=== PATIENT | male | born 1935 | race Hispanic/Latino ===

== ENCOUNTER 2017-07-04 11:02 | Outpatient (CLI) | payer MEDICARE, OTHER ==
--- NOTE | 2017-07-04 16:23 | XRay Report ---
XRAY BILATERAL KNEE FOUR VIEWS EACH: 07/04/17 11:02:00 CLINICAL: Bilateral knee pain. FINDINGS: Right: Moderate osteopenia. Status post total joint replacement with normal appearance of the prosthesis. No fracture or dislocation. No joint effusion. A few vascular calcifications. Soft tissues are otherwise unremarkable. Left: Moderate osteopenia. Status post total joint replacement with normal appearance of the prosthesis. No fracture or dislocation. No joint effusion. Moderate prepatellar and suprapatellar soft tissue edema.No soft tissue air or foreign body. Vascular calcifications. IMPRESSION: Status post bilateral total knee replacement. Nonspecific soft tissue edema on the left.
== END 2017-07-04 11:03 | disposition home or self-care (01) ==
LOC: SPVIMAG 11:02
PROVIDERS: ATTEND Orthopaedic Surgery Sports Medicine
DX: M85.861 Other specified disorders of bone density and structure, right lower leg (principal); M85.862 Other specified disorders of bone density and structure, left lower leg; M25.861 Other specified joint disorders, right knee; M25.862 Other specified joint disorders, left knee; I10 Essential (primary) hypertension; I48.91 Unspecified atrial fibrillation; E03.9 Hypothyroidism, unspecified; Z96.653 Presence of artificial knee joint, bilateral; Z87.891 Personal history of nicotine dependence

== ENCOUNTER 2019-08-12 10:18 | Inpatient (IN) | payer MEDICARE, OTHER ==
--- NOTE | 2019-08-12 11:03 | Event Note ---
ED Screening Note ED Screening Note: ILL APPEARING 84 YO WITH HR IN 50'S - PERSISTENT AFIB ON ATENOLOL SENT TO ER BY EYE DOCTOR DUE TO ACUTE RETINAL ARTERY OCCLUSION NO FOCAL DEF ON EXAM IN TRIAGE CARDS GUICHO DAVID [facility] COMPLICATED- SEE PAPERS THAT HAS ON HER PERSON RX PRADAXA STATIN ATENOLOL NO ASA MANY OTHERS -SEE LIST NO ACUTE EVENT AT THIS TIME This initial assessment/diagnostic orders/clinical plan/treatment(s) is/are subject to change based on patients health status, clinical progression and re- assessment by fellow clinical providers in the ED. Further treatment and workup at subsequent clinical providers discretion. Patient/guardian urged not to elope from the ED as their condition may be serious if not clinically assessed and managed. Initial orders include: CT HEAD XRAY CHEST EKG BRADYCARDIA BASIC LABS
--- NOTE | 2019-08-12 11:50 | XRay Report ---
CHEST 2 VIEWS INDICATION: Weakness. COMPARISON: None FINDINGS: Support devices: Stimulator device projects over the midthoracic spine. Heart: Within normal limits. Lungs/pleura: No acute air space or interstitial disease. Tiny calcified granuloma in the left lung base. Additional findings: None. IMPRESSION: 1. No acute findings. Signer Name: Gary Gambino MD Signed: 08/12/2019 11:46 AM Workstation Name: [id number]
[2019-08-12 11:59] LABS: Basophils # (Auto) 0.1 K/mm3 (0.0-0.1); Basophils % (Auto) 2.1 % (0.0-1.8); Eosinophils % (Auto) 0.5 % (0.0-4.3); Hematocrit 41.6 % (35.5-45.6); Lymphocytes # (Auto) 1.8 K/mm3 (1.2-5.4); Lymphocytes % (Auto) 33.2 % (13.4-35.0); Mean Corpuscular HGB Conc 34 % (32-34); Mean Corpuscular Volume 90 fl (84-94); Monocytes # (Auto) 0.8 K/mm3 (0.0-0.8); Platelet Count 157 K/mm3 (140-440); Red Blood Count 4.62 M/mm3 (3.65-5.03); Red Cell Distribution Width 14.6 % (13.2-15.2)
[2019-08-12 12:10] LABS: INR 1.42 (0.87-1.13)
[2019-08-12 12:11] LABS: Partial Thromboplastin Time 42.6 Sec. (24.2-36.6)
[2019-08-12 12:28] LABS: Calcium 9.9 mg/dL (8.4-10.2)
[2019-08-12 13:04] LABS: Bilirubin,Urine NEG (Negative); Blood,Urine LG (Negative); Color,Urine Amber (Yellow); Protein,Urine <15 mg/dL mg/dL (Negative); Urobilinogen,Urine < 2.0 mg/dL (<2.0)
[2019-08-12 13:23] LABS: Bacteria,Urine 1+ /HPF (Negative); Mucus,Urine Few /HPF
--- NOTE | 2019-08-12 13:30 | Cat Scan Report ---
CT head without contrast HISTORY: Weakness. TECHNIQUE: Axial imaging performed from the skull apex through the skull base without the use of con trast. All CT scans at this location are performed using CT dose reduction for ALARA by means of aut omated exposure control. COMPARISON: None FINDINGS: Parenchyma: No acute intracranial hemorrhage or parenchymal abnormality. Ventricles: There is mild diffuse brain atrophy with commensurate ventricular enlargement which is l ikely age appropriate. Soft tissues: Soft tissues including the orbits appear normal. Bones: No acute osseous abnormality. Sinuses: Sinuses and mastoid air cells are clear. IMPRESSION: No acute abnormality. Signer Name: Gary Gambino MD Signed: 08/12/2019 1:25 PM Workstation Name: [id number]
--- NOTE | 2019-08-12 16:58 | Emergency Department Report ---
ED Neuro Deficit HPI - General Chief Complaint: Weakness Stated Complaint: EYE STORKE Time Seen by Provider: 08/12/19 11:02 Source: patient Mode of arrival: Ambulatory Limitations: No Limitations - History of Present Illness Initial Comments: Mr. Hicks is an 84 yo male with hx of atrial fibrillation, asthma, CKD who was recently diagnosed by compensation manager Dr. 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 Study Manager was concerned for the risk of additional strokes. He has had decreased vision in the eye since mid June. Denies new gait disturbance, paralysis, numbness. No previous hx of CVA. Pot Filler Dr. Campoverde [facility] Takes Pradaxa, does take a statin medication. -: Sudden, month(s) (1) History of same: No Severity: moderate Improves With: none Worsens With: none On Anticoagulants: Yes (Pradaxa) Context: sudden onset - Related Data Home Medications: Home Medications Medication Instructions Recorded Confirmed Last Taken C,E,Zinc,Copper 24/Om3/Lut/Ora 1 each PO DAILY 01/03/15 09/21/15 10/17/15 [Ocuvite Softgel] Calcium Cit/Mag/D3/Zn/Search Strategist/Rashaad 1 each PO DAILY 01/03/15 09/21/15 10/17/15 [Calcium Citrate Plus Tablet] Cholecalciferol (Vitamin D3) 2,000 unit PO DAILY 01/03/15 09/21/15 10/17/15 [Vitamin D-3] Dabigatran [Pradaxa] 150 mg PO BID 01/03/15 10/18/15 10/12/15 Fenofibrate [Lofibra] 160 mg PO QDAY 01/03/15 09/21/15 10/17/15 160 MG Ferrous Gluconate [Ferate] 240 mg PO DAILY 01/03/15 09/21/15 10/17/15 Fish Oil/Borage/Flax/Om3,6,9 1 1,200 mg PO DAILY 01/03/15 09/21/15 10/17/15 [[place] 3-6-9 1,200 mg Softgel] Fluticasone [Flonase] 1 spray NS QDAY 01/03/15 10/18/15 10/16/15 Gabapentin 300 mg PO DAILY 01/03/15 09/21/15 10/17/15 300 MG Glucosam/Chondr/Collagn/Hyalur 1 each PO TID 01/03/15 09/21/15 10/17/15 [Glucosamine & Chondroitin Cap] HYDROcodone/APAP 5-325 [[place] 1 each PO Q6HR PRN 01/03/15 10/18/15 10/15/15 5/325] Levothyroxine [Synthroid] 50 mcg PO QAM 01/03/15 09/21/15 10/18/15 06:30 50 MCG Mv-Min/Folic/Vit K/Lycop/Coq10 1 each PO DAILY 01/03/15 09/21/15 10/17/15 [Daily Multivitamin Capsule] Omeprazole [PriLOSEC] 40 mg PO DAILY 01/03/15 09/21/15 10/17/15 40 MG Pravastatin [Pravachol] 40 mg PO QHS 01/03/15 09/21/15 10/17/15 40 MG Temazepam [Restoril] 30 mg PO QHS PRN 01/03/15 09/21/15 10/17/15 30 MG Tizanidine HCl [tiZANidine] 4 mg PO DAILY 01/03/15 09/21/15 10/17/15 Tolterodine (Nf) [Detrol LA] 4 mg PO QDAY 01/03/15 09/21/15 10/17/15 Ubidecarenone [Coq10] 50 mg PO DAILY 01/03/15 09/21/15 10/17/15 atenoloL [Tenormin] 25 mg PO DAILY 01/03/15 09/21/15 10/18/15 06:30 25 MG quiNINE sulfate [quiNINE Sulfate] 324 mg PO DAILY 01/03/15 09/21/15 10/17/15 324 MG Allergies/Adverse Reactions: Allergies Allergy/AdvReac Type Severity Reaction Status Date / Time No Known Allergies Allergy Verified 08/12/19 10:20 ED Review of Systems ROS: Stated complaint: EYE STORKE Other details as noted in HPI ED Past Medical Hx - Past Medical History Previous Medical History?: Yes Hx Hypertension: Yes (negative stress 06/27, EF 52%) Hx Heart Attack/AMI: No Hx Deep Vein Thrombosis: Yes Hx GERD: Yes Hx Renal Disease: Yes (CKD, CR 1.2) Hx Arthritis: Yes Hx Headaches / Migraines: Yes Hx Seizures: Yes (1980s, not on seizure meds) Hx Asthma: Yes (seasonal) Hx COPD: No Hx Tuberculosis: No Hx HIV: No - Social History Smoking Status: Former Smoker Substance Use Type: None Other Social History: , retired - Medications Home Medications: Home Medications Medication Instructions Recorded Confirmed Last Taken Type C,E,Zinc,Copper 24/Om3/Lut/Ora 1 each PO DAILY 01/03/15 09/21/15 10/17/15 History [Ocuvite Softgel] Calcium Cit/Mag/D3/Zn/Search Strategist/Rashaad 1 each PO DAILY 01/03/15 09/21/15 10/17/15 History [Calcium Citrate Plus Tablet] Cholecalciferol (Vitamin D3) 2,000 unit PO DAILY 01/03/15 09/21/15 10/17/15 History [Vitamin D-3] Dabigatran [Pradaxa] 150 mg PO BID 01/03/15 10/18/15 10/12/15 History Fenofibrate [Lofibra] 160 mg PO QDAY 01/03/15 09/21/15 10/17/15 History 160 MG Ferrous Gluconate [Ferate] 240 mg PO DAILY 01/03/15 09/21/15 10/17/15 History Fish Oil/Borage/Flax/Om3,6,9 1 1,200 mg PO DAILY 01/03/15 09/21/15 10/17/15 History [[place] 3-6-9 1,200 mg Softgel] Fluticasone [Flonase] 1 spray NS QDAY 01/03/15 10/18/15 10/16/15 History Gabapentin 300 mg PO DAILY 01/03/15 09/21/15 10/17/15 History 300 MG Glucosam/Chondr/Collagn/Hyalur 1 each PO TID 01/03/15 09/21/15 10/17/15 History [Glucosamine & Chondroitin Cap] HYDROcodone/APAP 5-325 [[place] 1 each PO Q6HR PRN 01/03/15 10/18/15 10/15/15 History 5/325] Levothyroxine [Synthroid] 50 mcg PO QAM 01/03/15 09/21/15 10/18/15 06:30 History 50 MCG Mv-Min/Folic/Vit K/Lycop/Coq10 1 each PO DAILY 01/03/15 09/21/15 10/17/15 History [Daily Multivitamin Capsule] Omeprazole [PriLOSEC] 40 mg PO DAILY 01/03/15 09/21/15 10/17/15 History 40 MG Pravastatin [Pravachol] 40 mg PO QHS 01/03/15 09/21/15 10/17/15 History 40 MG Temazepam [Restoril] 30 mg PO QHS PRN 01/03/15 09/21/15 10/17/15 History 30 MG Tizanidine HCl [tiZANidine] 4 mg PO DAILY 01/03/15 09/21/15 10/17/15 History Tolterodine (Nf) [Detrol LA] 4 mg PO QDAY 01/03/15 09/21/15 10/17/15 History Ubidecarenone [Coq10] 50 mg PO DAILY 01/03/15 09/21/15 10/17/15 History atenoloL [Tenormin] 25 mg PO DAILY 01/03/15 09/21/15 10/18/15 06:30 History 25 MG quiNINE sulfate [quiNINE Sulfate] 324 mg PO DAILY 01/03/15 09/21/15 10/17/15 History 324 MG ED Neuro Physical Exam - General Limitations: No Limitations General appearance: alert, in no apparent distress Suspected Stroke: Yes - Head Head exam: Present: atraumatic, normocephalic - Eye Eye exam: Present: normal appearance - ENT ENT exam: Present: mucous membranes moist - Neck Neck exam: Present: normal inspection - Respiratory Respiratory exam: Present: normal lung sounds bilaterally. Absent: respiratory distress, wheezes, rales, rhonchi - Cardiovascular Cardiovascular Exam: Present: regular rate, normal rhythm, normal heart sounds. Absent: systolic murmur, diastolic murmur, rubs, gallop - GI/Abdominal GI/Abdominal exam: Present: soft, normal bowel sounds. Absent: distended, tenderness, guarding, rebound - Rectal Rectal exam: Present: deferred - Extremities Exam Extremities exam: Present: normal inspection - Neurological Exam Neurological exam: Present: alert, oriented X3 - NIHSS Assessment Interval: Baseline 1a. Level of Consciousness: alert/keenly responsive 1b. LOC Questions: answers both correctly 1c. LOC Commands: performs tasks correctly 2. Best Gaze: normal 3. Visual: partial hemianopia 4. Facial Palsy: normal symmetrical movement 5b. Motor Arm Right: no drift 5a. Motor Arm Left: no drift 6a. Motor Leg Left: no drift 6b. Motor Leg Right: no drift 7. Limb Ataxia: absent 8. Sensory: normal 9. Best Language: no aphasia 10. Dysarthria: normal 11. Extinction/Inattention: no abnormality Total Score: 1 Stroke Severity: Minor Stroke - Psychiatric Psychiatric exam: Present: normal affect, normal mood - Skin Skin exam: Present: warm, dry, intact, normal color. Absent: rash ED Course Vital Signs 08/12/19 10:25 Temperature 98.6 F Pulse Rate 50 L Respiratory 20 Rate Blood Pressure 145/73 O2 Sat by Pulse 98 Oximetry - Lab Data Result diagrams: 08/12/19 11:33 08/12/19 11:33 Lab Results 08/12/19 08/12/19 08/12/19 Range/Units 11:33 11:33 11:33 WBC 5.4 (4.5-11.0) K/mm3 RBC 4.62 (3.65-5.03) M/mm3 Hgb 14.0 (11.8-15.2) gm/dl Hct 41.6 (35.5-45.6) % MCV 90 (84-94) fl MCH 30 (28-32) pg MCHC 34 (32-34) % RDW 14.6 (13.2-15.2) % Plt Count 157 (140-440) K/mm3 Lymph % (Auto) 33.2 (13.4-35.0) % [place] % (Auto) 14.0 H (0.0-7.3) % Eos % (Auto) 0.5 (0.0-4.3) % Baso % (Auto) 2.1 H (0.0-1.8) % Lymph # 1.8 (1.2-5.4) K/mm3 [place] # 0.8 (0.0-0.8) K/mm3 Eos # 0.0 (0.0-0.4) K/mm3 Baso # 0.1 (0.0-0.1) K/mm3 Seg Neutrophils % 50.2 (40.0-70.0) % Seg Neutrophils # 2.7 (1.8-7.7) K/mm3 PT 17.6 H (12.2-14.9) Sec. INR 1.42 H (0.87-1.13) APTT 42.6 H (24.2-36.6) Sec. Sodium 137 (137-145) mmol/L Potassium 4.8 (3.6-5.0) mmol/L Chloride 101.6 (98-107) mmol/L Carbon Dioxide 25 (22-30) mmol/L Anion Gap 15 mmol/L BUN 19 (9-20) mg/dL Creatinine 1.3 (0.8-1.5) mg/dL Estimated GFR 53 ml/min BUN/Creatinine Ratio 15 % Glucose 94 (75-100) mg/dL Calcium 9.9 (8.4-10.2) mg/dL Total Bilirubin 0.50 (0.1-1.2) mg/dL AST 28 (5-40) units/L ALT 21 (7-56) units/L Alkaline Phosphatase 45 (35-129) units/L Troponin T (0.00-0.029) ng/mL Total Protein 7.0 (6.3-8.2) g/dL Albumin 4.0 (3.9-5) g/dL Albumin/Globulin Ratio 1.3 % Urine Color (Yellow) Urine Turbidity (Clear) Urine pH (5.0-7.0) Ur Specific [place] (1.003-1.030) Urine Protein (Negative) mg/dL Urine Glucose (UA) (Negative) mg/dL Urine Ketones (Negative) mg/dL Urine Blood (Negative) Urine Nitrite (Negative) Urine Bilirubin (Negative) Urine Urobilinogen (<2.0) mg/dL Ur Leukocyte Esterase (Negative) Urine WBC (Auto) (0.0-6.0) /HPF Urine RBC (Auto) (0.0-6.0) /HPF U Epithel Cells (Auto) (0-13.0) /HPF Urine Bacteria (Auto) (Negative) /HPF Urine Mucus /HPF 08/12/19 08/12/19 Range/Units 11:33 12:36 WBC (4.5-11.0) K/mm3 RBC (3.65-5.03) M/mm3 Hgb (11.8-15.2) gm/dl Hct (35.5-45.6) % MCV (84-94) fl MCH (28-32) pg MCHC (32-34) % RDW (13.2-15.2) % Plt Count (140-440) K/mm3 Lymph % (Auto) (13.4-35.0) % [place] % (Auto) (0.0-7.3) % Eos % (Auto) (0.0-4.3) % Baso % (Auto) (0.0-1.8) % Lymph # (1.2-5.4) K/mm3 [place] # (0.0-0.8) K/mm3 Eos # (0.0-0.4) K/mm3 Baso # (0.0-0.1) K/mm3 Seg Neutrophils % (40.0-70.0) % Seg Neutrophils # (1.8-7.7) K/mm3 PT (12.2-14.9) Sec. INR (0.87-1.13) APTT (24.2-36.6) Sec. Sodium (137-145) mmol/L Potassium (3.6-5.0) mmol/L Chloride (98-107) mmol/L Carbon Dioxide (22-30) mmol/L Anion Gap mmol/L BUN (9-20) mg/dL Creatinine (0.8-1.5) mg/dL Estimated GFR ml/min BUN/Creatinine Ratio % Glucose (75-100) mg/dL Calcium (8.4-10.2) mg/dL Total Bilirubin (0.1-1.2) mg/dL AST (5-40) units/L ALT (7-56) units/L Alkaline Phosphatase (35-129) units/L Troponin T < 0.010 (0.00-0.029) ng/mL Total Protein (6.3-8.2) g/dL Albumin (3.9-5) g/dL Albumin/Globulin Ratio % Urine Color [place] (Yellow) Urine Turbidity Cloudy (Clear) Urine pH 6.0 (5.0-7.0) Ur Specific [place] 1.018 (1.003-1.030) Urine Protein <15 mg/dl (Negative) mg/dL Urine Glucose (UA) Neg (Negative) mg/dL Urine Ketones Neg (Negative) mg/dL Urine Blood Lg (Negative) Urine Nitrite Neg (Negative) Urine Bilirubin Neg (Negative) Urine Urobilinogen < 2.0 (<2.0) mg/dL Ur Leukocyte Esterase Neg (Negative) Urine WBC (Auto) 12.0 H (0.0-6.0) /HPF Urine RBC (Auto) 41.0 (0.0-6.0) /HPF U Epithel Cells (Auto) 15.0 H (0-13.0) /HPF Urine Bacteria (Auto) 1+ (Negative) /HPF Urine Mucus Few /HPF 08/12/19 17:00 EKG obtained 1033 Atrial fibrillation Ventricular rate 55 bpm nl axis NO ST elevation - Radiology Data Radiology results: report reviewed CT head: no acute abnormality, diffuse brain atrophy which corresponds to age according to radiology report AP chest: no acute findings - Medical Decision Making Mr. Hicks presents to ED after diagnosis of CRAO by compensation manager who recommended CVA evaluation. I spoke with Teleneurologist nurse who confirmed that stroke w/u is standard of care in this scenario. Admitted to hospitalist service. TPA not indicated in this instance. Critical care attestation.: If time is entered above; I have spent that time in minutes in the direct care of this critically ill patient, excluding procedure time. ED Disposition Clinical Impression: Central retinal artery occlusion of right eye Disposition: [id number] OP ADMIT IP TO THIS HOSP Is pt being admited?: Yes Does the pt Need Aspirin: No Condition: Stable
[2019-08-12 18:02] LABS: INR 1.39 (0.87-1.13)
[2019-08-12 18:03] LABS: Partial Thromboplastin Time 39.8 Sec. (24.2-36.6)
--- NOTE | 2019-08-12 19:17 | Consultation ---
History of Present Illness Consult date: 08/12/19 History of present illness: [facility] Impression: Central Retinal Artery Occlusion - patient presents to the ED as recommended by his air conditioning engineer after been found with CRAO. He has no other associated symptoms. There's an increase risk for stroke in patients with CRAO thus recommend admission for further work-up. Recommendations: 1.Admit for further work-up 2.OK to continue Pradaxa for now 3.Tele monitoring 4.DVT ppx 5.Inpatient neurology consultation 6.Discussed with ED MD Please call with questions CC STAT consult for CRAO History of Present Illness Patient is a 84 years old pleasant man with PMHx significant for afib on Pradaxa, CKD, HTN who presents to the ED as recommended by his air conditioning engineer for stroke up. Patient reports that he lost peripheral vision in his right eye about 6 weeks ago but was unable to get an appointment with his eye doctor until today. after evaluation today, he was told he had a "a stroke in his eye" and was sent to the ED for further evaluation. He denies any other associated symptoms as dizziness, headache, slurred speech, or weakness. Diagnostic: Non contrast CTH showed no acute findings Exam: Patient is in no apparent distress. Patient appears as stated age. No obvious acute respiratory or cardiac distress. Patient is well groomed and well- nourished. NIHSS score: 1 1A: Level of Consciousness - Alert; keenly responsive 0 1B: Ask Month and Age - Both Questions Right 0 1C: 'Blink Eyes' & 'Squeeze Hands' - Performs Both Tasks 0 2: Test Horizontal Extraocular Movements - Normal 0 3: Test Visual [place] - Partial Hemianopia +1 4: Test Facial Palsy - Normal symmetry 0 5A: Test Left Arm Motor Drift - No Drift for 10 Seconds 0 5B: Test Right Arm Motor Drift - No Drift for 10 Seconds 0 6A: Test Left Leg Motor Drift - No Drift for 5 Seconds 0 6B: Test Right Leg Motor Drift - No Drift for 5 Seconds 0 7: Test Limb Ataxia - No Ataxia 0 8: Test Sensation - Normal; No sensory loss 0 9: Test Language/Aphasia - Normal; No aphasia 0 10: Test Dysarthria - Normal 0 11: Test Extinction/Inattention - No abnormality 0 Medical Decision Making: - Extensive number of diagnosis or management options are considered above. - Extensive amount of complex data reviewed. - High risk of complication and/or morbidity or mortality are associated with differential diagnostic considerations above. - There may be Uncertain outcome and increased probability of prolonged functional impairment or high probability of severe prolonged functional impairment associated with some of these differential diagnosis. Medical Data Reviewed: 1.Data reviewed include clinical labs, radiology,Medical Tests; 2.Tests results discussed w/performing or interpreting physician; 3.Obtaining/reviewing old medical records; 4.Obtaining case history from another source; 5.Independent review of image, tracing or specimen. Patient was informed the Neurology Consult would happen via TeleHealth consult by way of interactive audio and video telecommunications and consented to receiving care in this manner. Medications and Allergies Allergies Allergy/AdvReac Type Severity Reaction Status Date / Time No Known Allergies Allergy Verified 08/12/19 10:20 Home Medications Medication Instructions Recorded Confirmed Last Taken Type C,E,Zinc,Copper 24/Om3/Lut/Ora 1 each PO DAILY 01/03/15 09/21/15 10/17/15 History [Ocuvite Softgel] Calcium Cit/Mag/D3/Zn/Strategy Lead/Rashaad 1 each PO DAILY 01/03/15 09/21/15 10/17/15 His tory [Calcium Citrate Plus Tablet] Cholecalciferol (Vitamin D3) 2,000 unit PO DAILY 01/03/15 09/21/15 10/17/15 History [Vitamin D-3] Dabigatran [Pradaxa] 150 mg PO BID 01/03/15 10/18/15 10/12/15 History Fenofibrate [Lofibra] 160 mg PO QDAY 01/03/15 09/21/15 10/17/15 History 160 MG Ferrous Gluconate [Ferate] 240 mg PO DAILY 01/03/15 09/21/15 10/17/15 History Fish Oil/Borage/Flax/Om3,6,9 1 1,200 mg PO DAILY 01/03/15 09/21/15 10/17/15 History [[place] 3-6-9 1,200 mg Softgel] Fluticasone [Flonase] 1 spray NS QDAY 01/03/15 10/18/15 10/16/15 History Gabapentin 300 mg PO DAILY 01/03/15 09/21/15 10/17/15 History 300 MG Glucosam/Chondr/Collagn/Hyalur 1 each PO TID 01/03/15 09/21/15 10/17/15 History [Glucosamine & Chondroitin Cap] HYDROcodone/APAP 5-325 [[place] 1 each PO Q6HR PRN 01/03/15 10/18/15 10/15/15 History 5/325] Levothyroxine [Synthroid] 50 mcg PO QAM 01/03/15 09/21/15 10/18/15 06:30 History 50 MCG Mv-Min/Folic/Vit K/Lycop/Coq10 1 each PO DAILY 01/03/15 09/21/15 10/17/15 History [Daily Multivitamin Capsule] Omeprazole [PriLOSEC] 40 mg PO DAILY 01/03/15 09/21/15 10/17/15 History 40 MG Pravastatin [Pravachol] 40 mg PO QHS 01/03/15 09/21/15 10/17/15 History 40 MG Temazepam [Restoril] 30 mg PO QHS PRN 01/03/15 09/21/15 10/17/15 History 30 MG Tizanidine HCl [tiZANidine] 4 mg PO DAILY 01/03/15 09/21/15 10/17/15 History Tolterodine (Nf) [Detrol LA] 4 mg PO QDAY 01/03/15 09/21/15 10/17/15 History Ubidecarenone [Coq10] 50 mg PO DAILY 01/03/15 09/21/15 10/17/15 History atenoloL [Tenormin] 25 mg PO DAILY 01/03/15 09/21/15 10/18/15 06:30 History 25 MG quiNINE sulfate [quiNINE Sulfate] 324 mg PO DAILY 01/03/15 09/21/15 10/17/15 History 324 MG Physical Examination - Vital Signs Vital Signs: Vital Signs Temp Pulse Resp BP Pulse Ox 98.6 F 50 L 20 145/73 98 08/12/19 10:25 08/12/19 10:25 08/12/19 10:25 08/12/19 10:25 08/12/19 10:25 Results - Laboratory Findings CBC and BMP: 08/12/19 11:33 08/12/19 11:33 Abnormal Lab Findings: Abnormal Labs 08/12/19 08/12/19 08/12/19 11:33 11:33 12:36 [place] % (Auto) 14.0 H Baso % (Auto) 2.1 H PT 17.6 H INR 1.42 H APTT 42.6 H Urine WBC (Auto) 12.0 H U Epithel Cells (Auto) 15.0 H 08/12/19 17:04 [place] % (Auto) Baso % (Auto) PT 17.3 H INR 1.39 H APTT 39.8 H Urine WBC (Auto) U Epithel Cells (Auto)
[2019-08-12] MEDS ORDERED: TEMAZEPAM 30 MG PO PRN (20:40)
[2019-08-12] MEDS ORDERED: ONDANSETRON 4 MG/2 ML INJ IV PRN (21:16)
[2019-08-12] MEDS ORDERED: ACETAMINOPHEN 325 MG TAB PO PRN (21:16)
[2019-08-12] MEDS ORDERED: ALBUTEROL 2.5 MG/3 ML NEBU IH PRN (21:16)
--- NOTE | 2019-08-12 21:22 | History and Physical Report ---
History of Present Illness Date of examination: 08/12/19 Date of admission: 08/12/19 17:06 Chief complaint: Central retinal artery occlusion History of present illness: 84-year-old male with history of CVA, A. 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 Yash Goldsmith (bander and cellophaner machine) recommendations for additional work-up and evaluation for CVA. Patient was recently diagnosed with essential retinal artery occlusion and right eye which places patient at risk for additional stroke. His bander and cellophaner machine was concerned and wanted patient to be evaluated. Tele-neurology was consulted in the ED and recommends admission for additional stroke work-up and evaluation by inpatient neurology. Will admit as per Dr. Col Nick (neurologist) recommendations for further evaluation. At the time of my exam patient is awake, alert and oriented ambulating with a quad cane in room. he has no complaints at this time. Past History Past Medical History: atrial fib (Anticoagulated on Pradaxa), other (Asthma, CKD, migraines, decreased vision in right eye, recently diagnosed central artery occlusion in the right eye) Past Surgical History: No surgical history Social history: Family history: no significant family history Medications and Allergies Allergies Allergy/AdvReac Type Severity Reaction Status Date / Time No Known Allergies Allergy Verified 08/12/19 10:20 Home Medications Medication Instructions Recorded Confirmed Last Taken Type C,E,Zinc,Copper 24/Om3/Lut/Ora 1 each PO DAILY 01/03/15 08/12/19 10/17/15 History [Ocuvite Softgel] Calcium Cit/Mag/D3/Zn/Pairer Inspector/Rashaad 1 each PO DAILY 01/03/15 08/12/19 10/17/15 History [Calcium Citrate Plus Tablet] Cholecalciferol (Vitamin D3) 2,000 unit PO DAILY 01/03/15 08/12/19 10/17/15 History [Vitamin D-3] Dabigatran [Pradaxa] 150 mg PO BID 01/03/15 08/12/19 10/12/15 History Fenofibrate [Lofibra] 160 mg PO QDAY 01/03/15 08/12/19 10/17/15 History 160 MG Ferrous Gluconate [Ferate] 240 mg PO DAILY 01/03/15 08/12/19 10/17/15 History Fish Oil/Borage/Flax/Om3,6,9 1 1,200 mg PO BID 01/03/15 08/12/19 10/17/15 History [[place] 3-6-9 1,200 mg Softgel] Fluticasone [Flonase] 1 spray NS QDAY 01/03/15 08/12/19 10/16/15 History Gabapentin 150 mg PO HS 01/03/15 08/12/19 10/17/15 History 300 MG Glucosam/Chondr/Collagn/Hyalur 1 each PO TID 01/03/15 08/12/19 10/17/15 History [Glucosamine & Chondroitin Cap] HYDROcodone/APAP 5-325 [[place] 1 each PO Q6HR PRN 01/03/15 08/12/19 10/15/15 History 5/325] Levothyroxine [Synthroid] 50 mcg PO QAM 01/03/15 08/12/19 10/18/15 06:30 History 50 MCG Mv-Min/Folic/Vit K/Lycop/Coq10 1 each PO DAILY 01/03/15 08/12/19 10/17/15 History [Daily Multivitamin Capsule] Omeprazole [PriLOSEC] 40 mg PO DAILY 01/03/15 08/12/19 10/17/15 History 40 MG Pravastatin [Pravachol] 40 mg PO QHS 01/03/15 08/12/19 10/17/15 History 40 MG Temazepam [Restoril] 30 mg PO QHS PRN 01/03/15 08/12/19 10/17/15 History 30 MG Tizanidine HCl [tiZANidine] 4 mg PO HS 01/03/15 08/12/19 10/17/15 History Tolterodine (Nf) [Detrol LA] 4 mg PO QDAY 01/03/15 08/12/19 10/17/15 History Ubidecarenone [Coq10] 50 mg PO DAILY 01/03/15 08/12/19 10/17/15 History atenoloL [Tenormin] 12.5 mg PO DAILY 01/03/15 08/12/19 10/18/15 06:30 History 25 MG quiNINE sulfate [quiNINE Sulfate] 324 mg PO DAILY 01/03/15 08/12/19 10/17/15 History 324 MG Azelastine/Fluticasone [Dymista 1 spray INTRANASAL DAILY 08/12/19 08/12/19 Unknown History Nasal [place]] Active Meds: Active Medications Acetaminophen/Hydrocodone Bitart ([place] 5/325) 1 each PO Q6HR PRN PRN Reason: Pain, Moderate (4-6) Atenolol (Tenormin) 12.5 mg PO DAILY [facility] Miscellaneous Medication (Azelastine/Fluticasone [Dymista Nasal [place]]) 1 spray INTRANASAL DAILY [facility] Miscellaneous Medication (C,E,Zinc,Copper 24/Om3/Lut/Ora [Ocuvite Adult 50 Plus Softgel]) 1 each PO DAILY [facility] Temazepam (Restoril) 30 mg PO QHS PRN PRN Reason: Sleep Review of Systems All systems: negative Eyes: right: loss of vision (Decreased vision in right eye), other (Central retinal artery occlusion) Exam - Physical Exam Narrative exam: Physical exam General appearance: Present: No acute distress, alert and oriented 3, pleasant, well-developed, well-nourished, older adult male - EENT Eyes: Present: PERRL, EOM intact ENT: hearing intact, normal dentition - Neck Neck: Present: supple, normal ROM - Respiratory Respiratory effort: Non-labored Respiratory: Clear throughout - Cardiovascular Heart rate: 46 (bpm) Rhythm: Sinus bradycardia Heart Sounds: Present: S1 & S2. Absent: rub, click - Extremities Extremities: no ischemia, pulses intact, - Peripheral Assessment Peripheral Pulses: within normal limits - Abdominal General gastrointestinal: soft, non-tender, normal bowel sounds - Integumentary Integumentary: Present: warm, dry - Musculoskeletal Musculoskeletal: Able to move all extremities, ambulates with cane at baseline -Neurological Neurological: CN II-XII intact - Psychiatric Psychiatric: cooperative - Constitutional Vitals: Temp Pulse Resp BP Pulse Ox 98.2 F 46 L 18 137/78 98 08/12/19 20:12 08/12/19 20:12 08/12/19 20:12 08/12/19 20:12 08/12/19 20:12 REECE score - Reece Score Age > 65: (1) Yes Aspirin use within the Past 7 Days: (0) No 3 or more CAD Risk Factors: (0) No 2 or more Angina events in past 24 hrs: (0) No Known CAD with more than 50% Stenosis: (0) No Elevated Cardiac Markers: (0) No ST Deviation Greater than 0.5mm: (0) No REECE Score: 1 Results - Labs CBC & Chem 7: 08/12/19 11:33 08/12/19 11:33 Labs: Laboratory Last Values WBC 5.4 K/mm3 (4.5-11.0) 08/12/19 11:33 RBC 4.62 M/mm3 (3.65-5.03) 08/12/19 11:33 Hgb 14.0 gm/dl (11.8-15.2) 08/12/19 11:33 Hct 41.6 % (35.5-45.6) 08/12/19 11:33 MCV 90 fl (84-94) 08/12/19 11:33 MCH 30 pg (28-32) 08/12/19 11:33 MCHC 34 % (32-34) 08/12/19 11:33 RDW 14.6 % (13.2-15.2) 08/12/19 11:33 Plt Count 157 K/mm3 (140-440) 08/12/19 11:33 Lymph % (Auto) 33.2 % (13.4-35.0) 08/12/19 11:33 [place] % (Auto) 14.0 % (0.0-7.3) H 08/12/19 11:33 Eos % (Auto) 0.5 % (0.0-4.3) 08/12/19 11:33 Baso % (Auto) 2.1 % (0.0-1.8) H 08/12/19 11:33 Lymph # 1.8 K/mm3 (1.2-5.4) 08/12/19 11:33 [place] # 0.8 K/mm3 (0.0-0.8) 08/12/19 11:33 Eos # 0.0 K/mm3 (0.0-0.4) 08/12/19 11:33 Baso # 0.1 K/mm3 (0.0-0.1) 08/12/19 11:33 Seg Neutrophils % 50.2 % (40.0-70.0) 08/12/19 11:33 Seg Neutrophils # 2.7 K/mm3 (1.8-7.7) 08/12/19 11:33 PT 17.3 Sec. (12.2-14.9) H 08/12/19 17:04 INR 1.39 (0.87-1.13) H 08/12/19 17:04 APTT 39.8 Sec. (24.2-36.6) H 08/12/19 17:04 Sodium 137 mmol/L (137-145) 08/12/19 11:33 Potassium 4.8 mmol/L (3.6-5.0) 08/12/19 11:33 Chloride 101.6 mmol/L (98-107) 08/12/19 11:33 Carbon Dioxide 25 mmol/L (22-30) 08/12/19 11:33 Anion Gap 15 mmol/L 08/12/19 11:33 BUN 19 mg/dL (9-20) 08/12/19 11:33 Creatinine 1.3 mg/dL (0.8-1.5) 08/12/19 11:33 Estimated GFR 53 ml/min 08/12/19 11:33 BUN/Creatinine Ratio 15 % 08/12/19 11:33 Glucose 94 mg/dL (75-100) 08/12/19 11:33 Calcium 9.9 mg/dL (8.4-10.2) 08/12/19 11:33 Total Bilirubin 0.50 mg/dL (0.1-1.2) 08/12/19 11:33 AST 28 units/L (5-40) 08/12/19 11:33 ALT 21 units/L (7-56) 08/12/19 11:33 Alkaline Phosphatase 45 units/L (35-129) 08/12/19 11:33 Troponin T < 0.010 ng/mL (0.00-0.029) 08/12/19 11:33 Total Protein 7.0 g/dL (6.3-8.2) 08/12/19 11:33 Albumin 4.0 g/dL (3.9-5) 08/12/19 11:33 Albumin/Globulin Ratio 1.3 % 08/12/19 11:33 Urine Color [place] (Yellow) 08/12/19 12:36 Urine Turbidity Cloudy (Clear) 08/12/19 12:36 Urine pH 6.0 (5.0-7.0) 08/12/19 12:36 Ur Specific [place] 1.018 (1.003-1.030) 08/12/19 12:36 Urine Protein <15 mg/dl mg/dL (Negative) 08/12/19 12:36 Urine Glucose (UA) Neg mg/dL (Negative) 08/12/19 12:36 Urine Ketones Neg mg/dL (Negative) 08/12/19 12:36 Urine Blood Lg (Negative) 08/12/19 12:36 Urine Nitrite Neg (Negative) 08/12/19 12:36 Urine Bilirubin Neg (Negative) 08/12/19 12:36 Urine Urobilinogen < 2.0 mg/dL (<2.0) 08/12/19 12:36 Ur Leukocyte Esterase Neg (Negative) 08/12/19 12:36 Urine WBC (Auto) 12.0 /HPF (0.0-6.0) H 08/12/19 12:36 Urine RBC (Auto) 41.0 /HPF (0.0-6.0) 08/12/19 12:36 U Epithel Cells (Auto) 15.0 /HPF (0-13.0) H 08/12/19 12:36 Urine Bacteria (Auto) 1+ /HPF (Negative) 08/12/19 12:36 Urine Mucus Few /HPF 08/12/19 12:36 - Imaging and Cardiology Imaging and Cardiology: CXR: FINDINGS: Support devices: Stimulator device projects over the midthoracic spine. Heart: Within normal limits. Lungs/pleura: No acute air space or interst itial disease. Tiny calcified granuloma in the left lung base. Additional findings: None. IMPRESSION: 1. No acute findings. CT Head: FINDINGS: Parenchyma: No acute intracranial hemorrhage or parenchymal abnormality. Ventricles: There is mild diffuse brain atrophy with commensurate ventricular enlargement which is likely age appropriate. Soft tissues: Soft tissues including the orbits appear normal. Bones: No acute osseous abnormality. Sinuses: Sinuses and mastoid air cells are clear. IMPRESSION: No acute abnormality. Assessment and Plan Assessment and plan: 84-year-old male with history of CVA, A. 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 Yash Goldsmith (bander and cellophaner machine) recommendations for additional work-up and evaluation for CVA. Central retinal artery occlusion(Right Eye) -Recently diagnosed by bander and cellophaner machine -Decreased vision in right eye since June 2019 -Telemetry neurology consulted recommendations appreciated -CT head negative -We will defer additional work-up per recommendations of inpatient neurology -Neurology consulted Afib -Anticoagulated on Pradaxa -Follows Dr. Campoverde at [facility] as outpatient Asthma -Albuterol PRN DVT PPX -On Pradaxa and SCD's Advance Directives: No VTE prophylaxis?: Chemical Plan of care discussed with patient/family: Yes
[2019-08-12] MEDS: DABIGATRAN 150 MG CAP PO SCH (21:59)
[2019-08-12] MEDS: tiZANidine TAB 4 MG TAB PO SCH (22:00)
[2019-08-12] MEDS ORDERED: GABAPENTIN 300 MG CAP PO SCH (22:00)
[2019-08-12] MEDS: HYDROcodone/ACETAMINOPHEN 5-325 MG TAB PO PRN (22:01)
[2019-08-12] MEDS: PRAVASTATIN 40 MG TAB PO SCH (22:01)
[2019-08-12] MEDS: GABAPENTIN 500 MG/10 ML ORAL LIQD PO SCH (22:02)
[2019-08-12] MEDS: DOCUSATE SODIUM 100 MG CAP PO SCH (22:03)
[2019-08-12] MEDS: TEMAZEPAM 15 MG CAP PO PRN (22:03)
[2019-08-13] MEDS: LEVOTHYROXINE 50 MCG TAB PO SCH (05:30)
[2019-08-13 06:28] LABS: Basophils # (Auto) 0.1 K/mm3 (0.0-0.1); Basophils % (Auto) 1.3 % (0.0-1.8); Eosinophils % (Auto) 0.4 % (0.0-4.3); Hematocrit 40.3 % (35.5-45.6); Hemoglobin 13.5 gm/dl (11.8-15.2); Lymphocytes # (Auto) 1.8 K/mm3 (1.2-5.4); Mean Corpuscular HGB Conc 34 % (32-34); Mean Corpuscular Volume 90 fl (84-94); Monocytes # (Auto) 0.9 K/mm3 (0.0-0.8); Monocytes % (Auto) 13.1 % (0.0-7.3); Platelet Count 149 K/mm3 (140-440); Red Blood Count 4.47 M/mm3 (3.65-5.03); Red Cell Distribution Width 14.7 % (13.2-15.2)
[2019-08-13 06:58] LABS: Calcium 9.1 mg/dL (8.4-10.2)
[2019-08-13] MEDS ORDERED: CHOLECALCIFEROL 2000 UNIT PO SCH (10:00)
[2019-08-13] MEDS ORDERED: AZELASTINE INTRANASAL SCH (10:00)
[2019-08-13] MEDS ORDERED: QUININE SULFATE 324 MG PO SCH (10:00)
[2019-08-13] MEDS ORDERED: [UNRECOGNIZED DRUG - OTHER] PO SCH (10:00)
[2019-08-13] MEDS ORDERED: FERROUS GLUCONATE 240 MG PO SCH (10:00)
[2019-08-13] MEDS ORDERED: FENOFIBRATE 160 MG PO SCH (10:00)
[2019-08-13] MEDS ORDERED: TOLTERODINE 4 MG PO SCH (10:00)
[2019-08-13] MEDS ORDERED: UBIDECARENONE 50 MG PO SCH (10:00)
[2019-08-13] MEDS ORDERED: FLUTICASONE INTRANASAL SCH (10:00)
[2019-08-13] MEDS: OXYBUTYNIN 5 MG TAB PO SCH ×3 (10:11→23:11)
[2019-08-13] MEDS: FENOFIBRATE 145 MG TAB PO SCH (10:12)
[2019-08-13] MEDS: CHOLECALCIFEROL (VIT D3) 1000 UNIT TAB PO SCH (10:12)
[2019-08-13] MEDS: atenoloL 25 MG TAB PO SCH (10:12)
[2019-08-13] MEDS: DOCUSATE SODIUM 100 MG CAP PO SCH ×2 (10:12→23:13)
[2019-08-13] MEDS: DABIGATRAN 150 MG CAP PO SCH ×2 (10:12→23:11)
[2019-08-13] MEDS ORDERED: FLUTICASONE PROPIONATE NASAL SPRAY 16 GM NS SCH (12:00)
[2019-08-13] MEDS: FERROUS GLUCONATE 324 MG TAB PO SCH (15:08)
--- NOTE | 2019-08-13 16:02 | Magnetic Resonance Report ---
MRI BRAIN WITHOUT CONTRAST INDICATION / CLINICAL INFORMATION: possible stroke. TECHNIQUE: Multiplanar, multisequence MR images of the brain were obtained. COMPARISON: None available. FINDINGS: BRAIN / INTRACRANIAL CONTENTS: The motion degrades image quality despite using a fast acquisition seq uences at. 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 The diffusion imaging reveals no evidence of acute infarction. The re is mild cerebral atrophy. The ventricular system is correspondingly appropriate in size and config uration. No extra-axial fluid collections or significant mass effect is identified. CRANIOCERVICAL JUNCTION: No significant abnormality. VASCULAR FLOW-VOIDS: No significant abnormality. ORBITS: No significant abnormality of visualized orbits. SINUSES / MASTOIDS: There is minimal mucosal thickening within the ethmoid and inferior left maxillar y sinuses. ADDITIONAL FINDINGS: None. IMPRESSION: 1. The MRI the brain is unremarkable for age without evidence of recent infarction. Signer Name: Derik Lugo MD Signed: 08/13/2019 3:57 PM Workstation Name: [id number]
--- NOTE | 2019-08-13 16:04 | Magnetic Resonance Report ---
MR MRA/MRV head wo con INDICATION / CLINICAL INFORMATION: 84 years Male; possible stroke. TECHNIQUE: 3-D time of flight. NASCET type criteria used to evaluate stenoses. COMPARISON: None available. FINDINGS: INTERNAL CAROTID ARTERIES: There is no significant stenosis involving the distal internal carotid art eries by NASCET criteria. VERTEBROBASILAR SYSTEM: No significant narrowing appreciated. DISTAL BRANCHES: There is no focal narrowing involving the proximal cerebral arteries or adjacent bra nches. ANEURYSM: None identified. IMPRESSION: No significant abnormality on this MRA of the brain. Signer Name: Derik Lugo MD Signed: 08/13/2019 3:59 PM Workstation Name: [id number]
--- NOTE | 2019-08-13 16:09 | Magnetic Resonance Report ---
MRA NECK WITHOUT CONTRAST HISTORY: COMPARISON: none TECHNIQUE: Routine MRA neck performed. 3-D/MIP reformats postprocessed. Percentage stenosis is dete rmined by direct quantitative measurements of distal internal carotid artery diameter compared with n ormal reference segments or by criteria similar to NASCET where applicable. CONTRAST: none FINDINGS: MRA NECK: Aortic arch: Not included on this study. Vertebral arteries: Balanced vertebral arteries are observed. Right carotid artery:Right common carotid artery, the carotid bifurcation and cervical portions of th e right internal carotid arteries all have an unremarkable appearance. Left carotid artery:The left common carotid artery, left carotid bifurcation and cervical portions of the left internal carotid artery all have an unremarkable appearance. SUMMARY:The degree of stenosis, if any, is determined utilizing NASCET like criteria. In this case th ere is no indication of stenosis at the carotid bifurcations or elsewhere. IMPRESSION: 1. No significant abnormality on MRA neck. Signer Name: Sixto Akbar MD Signed: 08/13/2019 4:05 PM Workstation Name: [id number]
--- NOTE | 2019-08-13 17:03 | Consultation ---
History of Present Illness Consult date: 08/13/19 Reason for Consult: Central retinal artery occlusion Chief complaint: Central retinal artery occlusion History of present illness: Neurology Consult Note: Patient is an 84-year-old man with a history of A. fib on Pradaxa, hyperlipidemia, hypertension, asthma, CAD, hypothyroidism, history of seizures, GERD, history of DVT, who presents with decreased vision in the right eye since mid June. He had developed decreased vision in the right eye in mid- June, and was seen by engraver machine earlier this week, who diagnosed him with central retinal artery occlusion. Patient was then told to come to the ER for further evaluation, and to rule out stroke. Patient states that he has been compliant with pradaxa, and has not missed any doses. Past History Past Medical History: atrial fib (Anticoagulated on Pradaxa), other (Asthma, CKD, migraines, decreased vision in right eye, recently diagnosed central artery occlusion in the right eye) Past Surgical History: No surgical history Social history: Family history: no significant family history Medications and Allergies Allergies Allergy/AdvReac Type Severity Reaction Status Date / Time No Known Allergies Allergy Verified 08/12/19 10:20 Home Medications Medication Instructions Recorded Confirmed Last Taken Type C,E,Zinc,Copper 24/Om3/Lut/Ora 1 each PO DAILY 01/03/15 08/12/19 10/17/15 History [Ocuvite Softgel] Calcium Cit/Mag/D3/Zn/Harvester Operator/Rashaad 1 each PO DAILY 01/03/15 08/12/19 10/17/15 History [Calcium Citrate Plus Tablet] Cholecalciferol (Vitamin D3) 2,000 unit PO DAILY 01/03/15 08/12/19 10/17/15 History [Vitamin D-3] Dabigatran [Pradaxa] 150 mg PO BID 01/03/15 08/12/19 10/12/15 History Fenofibrate [Lofibra] 160 mg PO QDAY 01/03/15 08/12/19 10/17/15 History 160 MG Ferrous Gluconate [Ferate] 240 mg PO DAILY 01/03/15 08/12/19 10/17/15 History Fish Oil/Borage/Flax/Om3,6,9 1 1,200 mg PO BID 01/03/15 08/12/19 10/17/15 History [[place] 3-6-9 1,200 mg Softgel] Fluticasone [Flonase] 1 spray NS QDAY 01/03/15 08/12/19 10/16/15 History Gabapentin 150 mg PO HS 01/03/15 08/12/19 10/17/15 History 300 MG Glucosam/Chondr/Collagn/Hyalur 1 each PO TID 01/03/15 08/12/19 10/17/15 History [Glucosamine & Chondroitin Cap] HYDROcodone/APAP 5-325 [[place] 1 each PO Q6HR PRN 01/03/15 08/12/19 10/15/15 History 5/325] Levothyroxine [Synthroid] 50 mcg PO QAM 01/03/15 08/12/19 10/18/15 06:30 History 50 MCG Mv-Min/Folic/Vit K/Lycop/Coq10 1 each PO DAILY 01/03/15 08/12/19 10/17/15 H istory [Daily Multivitamin Capsule] Omeprazole [PriLOSEC] 40 mg PO DAILY 01/03/15 08/12/19 10/17/15 History 40 MG Pravastatin [Pravachol] 40 mg PO QHS 01/03/15 08/12/19 10/17/15 History 40 MG Temazepam [Restoril] 30 mg PO QHS PRN 01/03/15 08/12/19 10/17/15 History 30 MG Tizanidine HCl [tiZANidine] 4 mg PO HS 01/03/15 08/12/19 10/17/15 History Tolterodine (Nf) [Detrol LA] 4 mg PO QDAY 01/03/15 08/12/19 10/17/15 History Ubidecarenone [Coq10] 50 mg PO DAILY 01/03/15 08/12/19 10/17/15 History atenoloL [Tenormin] 12.5 mg PO DAILY 01/03/15 08/12/19 10/18/15 06:30 History 25 MG quiNINE sulfate [quiNINE Sulfate] 324 mg PO DAILY 01/03/15 08/12/19 10/17/15 History 324 MG Azelastine/Fluticasone [Dymista 1 spray INTRANASAL DAILY 08/12/19 08/12/19 U nknown History Nasal [place]] Active Meds: Active Medications Acetaminophen (Tylenol) 650 mg PO Q4H PRN PRN Reason: Pain MILD(1-3)/Fever >100.5/ARANA Acetaminophen/Hydrocodone Bitart ([place] 5/325) 1 each PO Q6HR PRN PRN Reason: Pain, Moderate (4-6) Last Admin: 08/12/19 22:01 Dose: 1 each Documented by: Albuterol (Proventil) 2.5 mg IH Q3HRT PRN PRN Reason: Shortness Of Breath Atenolol (Tenormin) 12.5 mg PO DAILY [facility] Last Admin: 08/13/19 10:12 Dose: 12.5 mg Documented by: Cholecalciferol (Vitamin D3) 2,000 unit PO DAILY [facility] Last Admin: 08/13/19 10:12 Dose: 2,000 unit Documented by: Dabigatran (Pradaxa) 150 mg PO BID [facility]; Protocol Last Admin: 08/13/19 10:12 Dose: 150 mg Documented by: Docusate Sodium (Colace) 100 mg PO BID [facility] Last Admin: 08/13/19 10:12 Dose: 100 mg Documented by: Fenofibrate (Tricor) 145 mg PO DAILY [facility] Last Admin: 08/13/19 10:12 Dose: 145 mg Documented by: Ferrous Gluconate (Fergon) 324 mg PO DAILY [facility] Last Admin: 08/13/19 15:08 Dose: Not Given Documented by: Fluticasone Propionate (Flonase) 100 mcg NS QDAY [facility] Last Admin: 08/13/19 15:08 Dose: Not Given Documented by: Gabapentin (Gabapentin) 150 mg PO QHS [facility] Last Admin: 08/12/19 22:02 Dose: 150 mg Documented by: Levothyroxine Sodium (Synthroid) 50 mcg PO QAM@0600 [facility] Last Admin: 08/13/19 05:30 Dose: 50 mcg Documented by: Miscellaneous Medication (C,E,Zinc,Copper 24/Om3/Lut/Ora [Ocuvite Adult 50 Plus Softgel]) 1 each PO DAILY [facility] Miscellaneous Medication (Ubidecarenone [Coq10]) 50 mg PO DAILY [facility] Miscellaneous Medication (Quinine Sulfate [Quinine Sulfate]) 324 mg PO DAILY [facility] Ondansetron HCl (Zofran) 4 mg IV Q8H PRN PRN Reason: Nausea And Vomiting Oxybutynin Chloride (Ditropan) 5 mg PO TID [facility] Last Admin: 08/13/19 15:08 Dose: Not Given Documented by: Pravastatin Sodium (Pravachol) 40 mg PO QHS [facility] Last Admin: 08/12/19 22:01 Dose: 40 mg Documented by: Sodium Chloride (Sodium Chloride Flush Syringe 10 Ml) 10 ml IV BID [facility] Last Admin: 08/13/19 15:08 Dose: Not Given Documented by: Sodium Chloride (Sodium Chloride Flush Syringe 10 Ml) 10 ml IV PRN PRN PRN Reason: LINE FLUSH Temazepam (Restoril) 30 mg PO QHS PRN PRN Reason: Sleep Last Admin: 08/12/19 22:03 Dose: 30 mg Documented by: Tizanidine HCl (Zanaflex) 4 mg PO HS [facility] Last Admin: 08/12/19 22:00 Dose: 4 mg Documented by: Review of Systems All systems: negative Neurological: loss of vision Physical Examination - Vital Signs Vital Signs: Vital Signs Temp Pulse Resp BP Pulse Ox 98.6 F 50 L 20 145/73 98 08/12/19 10:25 08/12/19 10:25 08/12/19 10:25 08/12/19 10:25 08/12/19 10:25 - Physical Exam Narrative exam: Patient is alert, awake, oriented x4, follows complex commands. PERRL, EOMI, Rt. eye only appreciates light and left eye has full visual field, no facial weakness noted, tongue midline, b/l intact to LT. No dysarthria or aphasia noted. 5/5 strength in all extremities. B/l intact to LT. B/l intact to FTN and HTS. 2+ reflexes throughout. - Constitutional General appearance: comfortable - EENT EENT: Present: ATNC, PERRL, mucous membranes moist, hearing intact - Respiratory Respiratory: Present: lungs clear, normal breath sounds - Cardiovascular Cardiovascular: Present: regular rate, normal S1, normal S2 Extremities: Present: no clubbing, cyanosis, no inflammation - Gastrointestinal Gastrointestinal: Present: normoactive bowel sounds, soft, non-tender - Integumentary Integumentary: Present: normal - Musculoskeletal Musculoskeletal: Present: no fluid collection, no pain - Psychiatric Psychiatric: Present: mood/affect appropriate - Level of Consciousness 1a. Level of Consciousness: alert/keenly responsive - LOC Questions 1b. LOC Questions: answers both correctly - LOC Command 1c. LOC Commands: performs tasks correctly - Best Gaze 2. Best Gaze: normal - Visual 3. Visual: partial hemianopia (Complete loss of vision in right eye, only appreciates light, full visual field in the left eye.) - Facial Palsy 4. Facial Palsy: normal symmetrical movement - Motor Arm 5a. Motor Arm Left: no drift 5b. Motor Arm Right: no drift - Motor Leg 6a. Motor Leg Left: no drift 6b. Motor Leg Right: no drift - Limb Ataxia 7. Limb Ataxia: absent - Sensory 8. Sensory: normal - Best Language 9. Best Language: no aphasia - Dysarthria 10. Dysarthria: normal - Extinction and Inattention 11. Extinction/Inattention: no abnormality - Scoring Total Score: 1 Stroke Severity: Minor Stroke Results - Laboratory Findings CBC and BMP: 08/13/19 05:34 08/13/19 05:34 Abnormal Lab Findings: Abnormal Labs 08/12/19 08/12/19 08/12/19 11:33 11:33 12:36 [place] % (Auto) 14.0 H Baso % (Auto) 2.1 H [place] # PT 17.6 H INR 1.42 H APTT 42.6 H Urine WBC (Auto) 12.0 H U Epithel Cells (Auto) 15.0 H 08/12/19 08/13/19 17:04 05:34 [place] % (Auto) 13.1 H Baso % (Auto) [place] # 0.9 H PT 17.3 H INR 1.39 H APTT 39.8 H Urine WBC (Auto) U Epithel Cells (Auto) Assessment and Plan Patient is an 84-year-old man with a history of A. fib on Pradaxa, hyperlipidemia, hypertension, asthma, CAD, hypothyroidism, history of seizures, GERD, history of DVT, who presents with decreased vision in the right eye since mid June. According the patient's clinical findings, it is likely that his central retinal artery occlusion. There is no evidence that the patient has acute or subacute ischemic stroke on MRI. Plan: 1. Central Retinal Artery Occlusion: - Patient sent to [facility] by engraver machine after being diagnosed with CRAO. - MRI brain: no evidence of acute or subacute infarct - MRA head/neck: no significant stenosis - CUS: no significant stenosis - Echo: EF 45-50%, LA [id number] dilated, bubble study negative - Given that patient has had CRAO while compliant with Pradaxa, can consider switching from Pradaxa to Eliquis, if ok with Cardiology team. Patient states that his primary pretzel twisting machine operator had started him on Pradaxa. - Recommended for patient not to drive until cleared by engraver machine, given loss of vision in right eye. -Will sign off, as I am not covering neurology service over the weekend. Recommend consult neurologist covering service over the weekend for further neurologic monitoring and management. Thank you for allowing me to take part in the care of this patient. Rick Hunt MD Neurology
--- NOTE | 2019-08-13 18:47 | Progress Note ---
Assessment and Plan Assessment and plan: Patient is a 84-year-old male with history of CVA, A. 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 Yash Goldsmith (barrel endshake adjuster) recommendations for additional work-up and evaluation for CVA. * pCXR IMPRESSION: 1. No acute findings. * CT Head IMPRESSION: No acute abnormality. * MRI/MRA brain: unremarkable * TTE conclusions: est EF 45-50%, left atrium mild ot moderately dilated, right heart chambers mild ot moderately dilated, mild mr, mild tr, RVSP calculated at 35 mmHg, no atrial septal defect Central retinal artery occlusion(Right Eye) -Recently diagnosed by barrel endshake adjuster -Decreased vision in right eye since June 2019 -Telemetry neurology consulted recommendations appreciated -CT head negative -We will defer additional work-up per recommendations of inpatient neurology -Neurology consulted Afib -Anticoagulated on Pradaxa -Follows Dr. Campoverde at [facility] as outpatient, consult placed Asthma -Albuterol PRN DVT PPX -On Pradaxa and SCD's Advance Directives: No VTE prophylaxis?: Chemical Plan of care discussed with patient/family: Yes Carotid u/s pending, anticipate discharge tomorrow ?need change pradaxa to Eliquis History Interval history: Patient was seen and examined. Follow-up on current diagnosis. Overnight uneventful as no events directly reported to me. Patient denies any chest pain, shortness breath, nausea/vomiting or severe headaches. Imaging, nursing note, chart, labs and old chart reviewed. Discussed with patient. Hospitalist Physical - Physical exam Narrative exam: Gen: WDWN, NAD, Awake, Alert, Orientated HEENT: NCAT, EOMI, PERRL, OP Clear Neck: supple, no adenopathy, no thyromegaly, no JVD CVS/Heart: RRR, normal S1S2, pulses present bilaterally Chest/Lungs: CTA B, Symmetrical chest expansion, good air entry bilaterally GI/Abdomen: soft, NTND, good bowel sounds, no guarding or rebound /Bladder: no suprapubic tenderness, no CVA or paraspinal tenderness Extermity/Skin: no c/c/e, no obvious rash MSK: FROM x 4 Neuro: CN 2-12 grossly intact except right lateral hemianopsia, no new focal deficits Psych: calm - Constitutional Vitals: Temp Pulse Resp BP Pulse Ox 98.0 F 63 18 109/68 98 08/13/19 17:26 08/13/19 17:26 08/13/19 17:26 08/13/19 17:26 08/13/19 17:26 REECE score - Reece Score Age > 65: (1) Yes Aspirin use within the Past 7 Days: (0) No 3 or more CAD Risk Factors: (0) No 2 or more Angina events in past 24 hrs: (0) No Known CAD with more than 50% Stenosis: (0) No Elevated Cardiac Markers: (0) No ST Deviation Greater than 0.5mm: (0) No REECE Score: 1 Results - Labs CBC & Chem 7: 08/13/19 05:34 08/13/19 05:34 Labs: Laboratory Last Values WBC 6.5 K/mm3 (4.5-11.0) 08/13/19 05:34 RBC 4.47 M/mm3 (3.65-5.03) 08/13/19 05:34 Hgb 13.5 gm/dl (11.8-15.2) 08/13/19 05:34 Hct 40.3 % (35.5-45.6) 08/13/19 05:34 MCV 90 fl (84-94) 08/13/19 05:34 MCH 30 pg (28-32) 08/13/19 05:34 MCHC 34 % (32-34) 08/13/19 05:34 RDW 14.7 % (13.2-15.2) 08/13/19 05:34 Plt Count 149 K/mm3 (140-440) 08/13/19 05:34 Lymph % (Auto) 28.0 % (13.4-35.0) 08/13/19 05:34 [place] % (Auto) 13.1 % (0.0-7.3) H 08/13/19 05:34 Eos % (Auto) 0.4 % (0.0-4.3) 08/13/19 05:34 Baso % (Auto) 1.3 % (0.0-1.8) 08/13/19 05:34 Lymph # 1.8 K/mm3 (1.2-5.4) 08/13/19 05:34 [place] # 0.9 K/mm3 (0.0-0.8) H 08/13/19 05:34 Eos # 0.0 K/mm3 (0.0-0.4) 08/13/19 05:34 Baso # 0.1 K/mm3 (0.0-0.1) 08/13/19 05:34 Seg Neutrophils % 57.2 % (40.0-70.0) 08/13/19 05:34 Seg Neutrophils # 3.7 K/mm3 (1.8-7.7) 08/13/19 05:34 PT 17.3 Sec. (12.2-14.9) H 08/12/19 17:04 INR 1.39 (0.87-1.13) H 08/12/19 17:04 APTT 39.8 Sec. (24.2-36.6) H 08/12/19 17:04 Sodium 141 mmol/L (137-145) 08/13/19 05:34 Potassium 3.9 mmol/L (3.6-5.0) 08/13/19 05:34 Chloride 102.7 mmol/L (98-107) 08/13/19 05:34 Carbon Dioxide 26 mmol/L (22-30) 08/13/19 05:34 Anion Gap 16 mmol/L 08/13/19 05:34 BUN 18 mg/dL (9-20) 08/13/19 05:34 Creatinine 1.2 mg/dL (0.8-1.5) 08/13/19 05:34 Estimated GFR 58 ml/min 08/13/19 05:34 BUN/Creatinine Ratio 15 % 08/13/19 05:34 Glucose 87 mg/dL (75-100) 08/13/19 05:34 Calcium 9.1 mg/dL (8.4-10.2) 08/13/19 05:34 Total Bilirubin 0.50 mg/dL (0.1-1.2) 08/12/19 11:33 AST 28 units/L (5-40) 08/12/19 11:33 ALT 21 units/L (7-56) 08/12/19 11:33 Alkaline Phosphatase 45 units/L (35-129) 08/12/19 11:33 Troponin T < 0.010 ng/mL (0.00-0.029) 08/12/19 11:33 Total Protein 7.0 g/dL (6.3-8.2) 08/12/19 11:33 Albumin 4.0 g/dL (3.9-5) 08/12/19 11:33 Albumin/Globulin Ratio 1.3 % 08/12/19 11:33 Urine Color Barbie (Yellow) 08/12/19 12:36 Urine Turbidity Cloudy (Clear) 08/12/19 12:36 Urine pH 6.0 (5.0-7.0) 08/12/19 12:36 Ur Specific [place] 1.018 (1.003-1.030) 08/12/19 12:36 Urine Protein <15 mg/dl mg/dL (Negative) 08/12/19 12:36 Urine Glucose (UA) Neg mg/dL (Negative) 08/12/19 12:36 Urine Ketones Neg mg/dL (Negative) 08/12/19 12:36 Urine Blood Lg (Negative) 08/12/19 12:36 Urine Nitrite Neg (Negative) 08/12/19 12:36 Urine Bilirubin Neg (Negative) 08/12/19 12:36 Urine Urobilinogen < 2.0 mg/dL (<2.0) 08/12/19 12:36 Ur Leukocyte Esterase Neg (Negative) 08/12/19 12:36 Urine WBC (Auto) 12.0 /HPF (0.0-6.0) H 08/12/19 12:36 Urine RBC (Auto) 41.0 /HPF (0.0-6.0) 08/12/19 12:36 U Epithel Cells (Auto) 15.0 /HPF (0-13.0) H 08/12/19 12:36 Urine Bacteria (Auto) 1+ /HPF (Negative) 08/12/19 12:36 Urine Mucus Few /HPF 08/12/19 12:36 Active Medications - Current Medications Current Medications: Generic Name Dose Route Start Last Admin Trade Name Freq PRN Reason Stop Dose Admin Acetaminophen 650 mg 08/12/19 21:16 Tylenol PO Q4H PRN Pain MILD(1-3)/Fever >100.5/ARANA Acetaminophen/Hydrocodone Bitart 1 each 08/12/19 20:40 08/12/19 22:01 [place] 5/325 PO 1 each Q6HR PRN Administration Pain, Moderate (4-6) Albuterol 2.5 mg 08/12/19 21:16 Proventil IH Q3HRT PRN Shortness Of Breath Atenolol 12.5 mg 08/13/19 10:00 08/13/19 10:12 Tenormin PO 12.5 mg DAILY ALEX Administration Cholecalciferol 2,000 unit 08/13/19 10:00 08/13/19 10:12 Vitamin D3 PO 2,000 unit DAILY ALEX Administration Dabigatran 150 mg 08/12/19 22:00 08/13/19 10:12 Pradaxa PO 150 mg BID ALEX Administration Protocol Docusate Sodium 100 mg 08/12/19 22:00 08/13/19 10:12 Colace PO 100 mg BID ALEX Administration Fenofibrate 145 mg 08/13/19 10:00 08/13/19 10:12 Tricor PO 145 mg DAILY ALEX Administration Ferrous Gluconate 324 mg 08/13/19 10:00 08/13/19 15:08 Fergon PO Not Given DAILY [facility] Fluticasone Propionate 100 mcg 08/13/19 12:00 08/13/19 15:08 Flonase NS Not Given QDAY [facility] Gabapentin 150 mg 08/12/19 22:00 08/12/19 22:02 Gabapentin PO 150 mg QHS ALEX Administration Levothyroxine Sodium 50 mcg 08/13/19 06:00 08/13/19 05:30 Synthroid PO 50 mcg QAM@0600 [facility] Administration Miscellaneous Medication 1 each 08/13/19 10:00 C,E,Zinc,Copper 24/Om3/Lut/Ora [Ocuvite Adult 50 Plus Softgel] PO DAILY [facility] Miscellaneous Medication 50 mg 08/13/19 10:00 Ubidecarenone [Coq10] PO DAILY [facility] Miscellaneous Medication 324 mg 08/13/19 10:00 Quinine Sulfate [Quinine Sulfate] PO DAILY [facility] Ondansetron HCl 4 mg 08/12/19 21:16 Zofran IV Q8H PRN Nausea And Vomiting Oxybutynin Chloride 5 mg 08/13/19 08:00 08/13/19 15:08 Ditropan PO Not Given TID [facility] Pravastatin Sodium 40 mg 08/12/19 22:00 08/12/19 22:01 Pravachol PO 40 mg QHS ALEX Administration Sodium Chloride 10 ml 08/12/19 22:00 08/13/19 15:08 Sodium Chloride Flush Syringe 10 Ml IV Not Given BID ALEX Sodium Chloride 10 ml 08/12/19 21:16 Sodium Chloride Flush Syringe 10 Ml IV PRN PRN LINE FLUSH Temazepam 30 mg 08/12/19 20:49 08/12/19 22:03 Restoril PO 30 mg QHS PRN Administration Sleep Tizanidine HCl 4 mg 08/12/19 22:00 08/12/19 22:00 Zanaflex PO 4 mg HS ALEX Administration
--- NOTE | 2019-08-13 19:31 | Vascular Lab Report ---
"DUPLEX DOPPLER ULTRASOUND CAROTID, BILATERAL INDICATION / CLINICAL INFORMATION: carotid stenosis. COMPARISON: None available. FINDINGS: RIGHT CAROTID PLAQUE ESTIMATE: < 50% CCA velocity: 129 cm/sec. ICA peak systolic velocity: 85 cm/sec. ICA/CCA PSV Ratio: 0.7 Right Vertebral Artery: Antegrade flow. LEFT CAROTID PLAQUE ESTIMATE: < 50% CCA velocity: 101 cm/sec. ICA peak systolic velocity: 80 cm/sec. ICA/CCA PSV Ratio: 0.8 Left Vertebral Artery: Antegrade flow. IMPRESSION: 1. Right Internal Carotid Artery: Less than 50% diameter stenosis. 2. Left Internal Carotid Artery: Less than 50% diameter stenosis. Velocity criteria are extrapolated from diameter data as defined by the Society of Radiologists in Ul trasound Consensus Conference, Radiology 2003; 229;340-346. Degree of || ICA PSV || Plaque || ICA/CCA Stenosis (%) || (cm/sec) || estimate (%) || PSV Ratio Normal ............. || ...<125........... || ...None......... || ...<2.0 <50................... || ...<125........... || ......<50......... || ...<2.0 50-69................ || ..125-230...... || ......>50......... || 2.0-4.0 >70 but <100... || >230.............. || .......>50........ || ...>4.0 Near occlusion || High/low/none || ...visible....... || variable Total occlusion || ....None........... || ..no lumen... || ....N/A Signer Name: Yash De Oliveira MD Signed: 08/13/2019 7:27 PM Workstation Name: [id number]"
[2019-08-13] MEDS: HYDROcodone/ACETAMINOPHEN 5-325 MG TAB PO PRN (23:10)
[2019-08-13] MEDS: tiZANidine TAB 4 MG TAB PO SCH (23:10)
[2019-08-13] MEDS: PRAVASTATIN 40 MG TAB PO SCH (23:10)
[2019-08-13] MEDS: GABAPENTIN 500 MG/10 ML ORAL LIQD PO SCH (23:12)
[2019-08-13] MEDS: TEMAZEPAM 15 MG CAP PO PRN (23:13)
[2019-08-14] MEDS: LEVOTHYROXINE 50 MCG TAB PO SCH (05:51)
[2019-08-14] MEDS: OXYBUTYNIN 5 MG TAB PO SCH (08:11)
[2019-08-14] MEDS: FERROUS GLUCONATE 324 MG TAB PO SCH (10:51)
[2019-08-14] MEDS: DOCUSATE SODIUM 100 MG CAP PO SCH (10:51)
[2019-08-14] MEDS: atenoloL 25 MG TAB PO SCH (10:52)
[2019-08-14] MEDS: FENOFIBRATE 145 MG TAB PO SCH (10:52)
[2019-08-14] MEDS: CHOLECALCIFEROL (VIT D3) 1000 UNIT TAB PO SCH (10:52)
[2019-08-14] MEDS: DABIGATRAN 150 MG CAP PO SCH (10:52)
[2019-08-14] MEDS ORDERED: MULTIVITAMINS,THER W-MINERALS TAB PO SCH (11:00)
[2019-08-14 12:36] VITALS: BP 111/67
--- NOTE | 2019-08-14 13:19 | Event Note ---
Date: 08/14/19 The patient is well known to me as I follow him as an outpatient with atrial fibrillation on anticoagulates. Currently admitted with the retinal artery thrombosis and has been seen by neurologist. Cardiac status is satisfactory except he is having periods of slow heart rate with his atrial fibrillation. I have discontinued the atenolol. Case discussed with Dr. Stiles. Patient will be followed as an outpatient. I have not dictated a formal consultation. Dr. DEEP Campoverde
--- NOTE | 2019-08-14 13:43 | Discharge Summary ---
Providers - Providers Date of Admission: 08/12/19 17:06 Date of discharge: 08/14/19 Attending physician: RAJI CUMMINGS 08/12/19 21:11 Consult to Physician [CONS] Routine Comment: Consulting Provider: ARYA WHITE Physician Instructions: Reason For Exam: Central retinal artery occlusion 08/12/19 21:17 Occupational Therapy Evaluate and Treat [CONS] Routine Comment: Reason For Exam: Neuro deficits Physical Therapy Evaluation and Treat [CONS] Routine Comment: Reason For Exam: Neuro deficits 08/13/19 16:41 Consult to Physician [CONS] Routine Comment: Consulting Provider: HORTENCIA GALLEGOS Physician Instructions: Reason For Exam: ?PFO [facility] Hospital[facility] Condition: Stable Hospital course: Patient is a 84-year-old male with history of CVA, A. 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 Yash Goldsmith (client services assistant) recommendations for additional work-up and evaluation for CVA. * pCXR IMPRESSION: 1. No acute findings. * CT Head IMPRESSION: No acute abnormality. * MRI/MRA brain: unremarkable * TTE conclusions: est EF 45-50%, left atrium mild ot moderately dilated, right heart chambers mild ot moderately dilated, mild mr, mild tr, RVSP calculated at 35 mmHg, no atrial septal defect Discharge Diagnoses: Central retinal artery occlusion(Right Eye) with right hemianopsia -Recently diagnosed by client services assistant -Decreased vision in right eye since June 2019 -Telemetry neurology consulted recommendations appreciated -CT head negative -We will defer additional work-up per recommendations of inpatient neurology -Neurology consulted Afib -Anticoagulated on Pradaxa -Follows Dr. Lindo at [facility] as outpatient, consult placed -ok to change pradaxa to Eliquis, d/w Dr. Lindo Asthma -Albuterol PRN DVT PPX -On Pradaxa and SCD's Advance Directives: No VTE prophylaxis?: Chemical Plan of care discussed with patient/family: Yes Carotid u/s unremarkable Disposition: - TO HOME OR SELFCARE Time spent for discharge: 32 mintues Core Measure Documentation - Palliative Care Palliative Care/ Comfort Measures: Not Applicable - Core Measures Any of the following diagnoses?: none - VTE Discharge Requirements Deep Vein Thrombosis/Pulmonary Embolism Present on Admission: No Has pt received <5 days of overlap therapy or INR<2.0: No Anticoagulant overlap therapy prescribed at discharge: No Contraindication No Overlap Therapy order at DC: Not Indicated Exam - Physical Exam Narrative exam: Gen: WDWN, NAD, Awake, Alert, Orientated HEENT: NCAT, EOMI, PERRL, OP Clear Neck: supple, no adenopathy, no thyromegaly, no JVD CVS/Heart: RRR, normal S1S2, pulses present bilaterally Chest/Lungs: CTA B, Symmetrical chest expansion, good air entry bilaterally GI/Abdomen: soft, NTND, good bowel sounds, no guarding or rebound /Bladder: no suprapubic tenderness, no CVA or paraspinal tenderness Extermity/Skin: no c/c/e, no obvious rash MSK: FROM x 4 Neuro: CN 2-12 grossly intact except right lateral hemianopsia, no new focal deficits Psych: calm - Constitutional Vitals: Temp Pulse Resp BP Pulse Ox 98.8 F 69 18 111/67 97 08/14/19 11:18 08/14/19 11:18 08/14/19 11:18 08/14/19 11:18 08/14/19 12:37 Plan Activity: no driving until cleared by PCP, other (no strenous activity unless cleared by [employer]) Special Instructions: record daily BP diary Additional Instructions: follow up with your eye doctor as soon as possible Follow up with: JESSEE BELTRAN MD [Primary Care Provider] - 7 Days RACHEL LANZA MD [Staff Physician] - 7 Days JONATHAN LINDO MD [Staff Physician] - 7 Days Prescriptions: Apixaban [Eliquis] 5 mg PO Q12H #60 tablet
== END 2019-08-14 16:21 | disposition home or self-care (01) | DRG 123 ==
LOC: ED 10:18 → 4A 17:06
PROVIDERS: ADMIT Internal Medicine; ATTEND Internal Medicine
DX: H34.11 Central retinal artery occlusion, right eye (principal); H53.47 Heteronymous bilateral field defects; I48.91 Unspecified atrial fibrillation; J45.909 Unspecified asthma, uncomplicated; K21.9 Gastro-esophageal reflux disease without esophagitis; G43.909 Migraine, unspecified, not intractable, without status migrainosus; I12.9 Hypertensive chronic kidney disease with stage 1 through stage 4 chronic kidney disease, or unspecified chronic kidney disease; N18.9 Chronic kidney disease, unspecified; M19.90 Unspecified osteoarthritis, unspecified site; E78.5 Hyperlipidemia, unspecified; E03.9 Hypothyroidism, unspecified; Z86.73 Personal history of transient ischemic attack (TIA), and cerebral infarction without residual deficits; Z79.01 Long term (current) use of anticoagulants; Z86.718 Personal history of other venous thrombosis and embolism; Z87.891 Personal history of nicotine dependence
CPT/HCPCS: 36415; 70450; 70544; 70547; 70551; 71046; 80048; 80053; 81001; 84484; 85025; 85610; 85730; 87086; 93005; 93010; 93306; 93880; 96374; G0378; A9270-GY

== ENCOUNTER 2019-12-13 07:30 | Day surgery (SDC) | payer MEDICARE, OTHER ==
[2019-12-09 10:46] LABS: Hematocrit 41.2 % (35.5-45.6); Hemoglobin 13.7 gm/dl (11.8-15.2); Mean Corpuscular HGB Conc 33 % (32-34); Mean Corpuscular Volume 89 fl (84-94); Platelet Count 157 K/mm3 (140-440); Red Blood Count 4.65 M/mm3 (3.65-5.03); Red Cell Distribution Width 14.5 % (13.2-15.2)
[2019-12-09 11:06] LABS: Alanine Aminotransferase 20 units/L (7-56); Albumin 3.9 g/dL (3.9-5); BUN/Creatinine Ratio 16; Blood Urea Nitrogen 18 mg/dL (9-20); Calcium 9.8 mg/dL (8.4-10.2); Hemolysis Index 17
[2019-12-13 10:10] LABS: INR 1.12 (0.87-1.13)
[2019-12-13] MEDS ORDERED: fentaNYL 100 MCG/2 ML INJ IV PRN ×2 (10:26→10:27)
--- NOTE | 2019-12-13 10:30 | Anesthesia Day of Surgery ---
Anesthesia Day of Surgery - Day of Surgery Patient Examined: Yes Patient H&P Reviewed: Yes Patient is NPO: Yes
--- NOTE | 2019-12-13 10:30 | Anesthesia Consultation ---
Anesthesia Consult and Med Hx Date of service: 12/13/19 - Airway Anesthetic Teeth Evaluation: Good ROM Head & Neck: Adequate Mental/Hyoid Distance: Adequate Mallampati Class: Class II Intubation Access Assessment: Probably Good - Pulmonary Exam CTA: Yes - Cardiac Exam Cardiac Exam: No Murmur - Pre-Operative Health Status ASA Pre-Surgery Classification: ASA3 Proposed Anesthetic Plan: General - Pulmonary Hx Smoking: Yes (3 Pk/day; Quit 1994) Hx Asthma: Yes (used advair this morning) Hx Respiratory Symptoms: No COPD: Yes Hx Sleep Apnea: Yes (no CPAP) - Cardiovascular System Hx Hypertension: No (noted in chart but patient denies) Hx Heart Attack/AMI: No Hx Percutaneous Transluminal Coronary Angioplasty (PTCA): No Hx Cardia Arrhythmia: Yes (afib, last dose eliquis 12/09) Hx Pacemaker: No Hx Internal Defibrillator: No Hx Peripheral Vascular Disease: Yes - Central Nervous System CVA: Yes (07/2019) Hx Back Pain: Yes (s/p stimulator placement) - Gastrointestinal Hx Gastroesophageal Reflux Disease: Yes (asymptomatic today) - Endocrine Hx Renal Disease: Yes (CKD) Hx Liver Disease: No Hx Insulin Dependent Diabetes: No Hx Non-Insulin Dependent Diabetes: No Hx Hypothyroidism: Yes - Hematic Hx Anemia: No - Other Systems Hx Cancer: Yes (hx colon and bladder ca) Hx Obesity: No - Additional Comments Anesthesia Medical History Comments: No hx anesthetic complications
[2019-12-13] MEDS ORDERED: LIDOCAINE MPF (2%) 20 MG/1 ML VIAL 5 ML ONE (10:59)
[2019-12-13] MEDS ORDERED: HYDROmorphone 1 MG/1 ML INJ ONE (10:59)
[2019-12-13] MEDS ORDERED: propofoL 200 MG/20 ML VIAL IV ONE (10:59)
[2019-12-13] MEDS ORDERED: LACTATED RINGERS 1,000 ML IV SCH (11:00)
[2019-12-13] MEDS ORDERED: ceFAZolin/STERILE WATER 2 GM/20 ML SYRINGE IV NR (12:00)
[2019-12-13] MEDS ORDERED: MANNITOL/SORBITOL SOLUTION 3,000 ML IRRIG.SOLN IR ONE (12:00)
--- NOTE | 2019-12-13 12:16 | Short Stay Summary ---
Short Stay Documentation Date of service: 12/13/19 Narrative H&P: 84 yr old male recurrent bladder tumor - History Past Medical History: CAD, hypertension Social history: , other - Allergies and Medications Current Medications: Allergies No Known Allergies Allergy (Verified 08/12/19 10:20) Home Medications Medication Instructions Recorded Confirmed Last Taken Type C,E,Zinc,Copper 24/Om3/Lut/Ora 1 each PO DAILY 01/03/15 11/30/19 10/17/15 History [Ocuvite Adult 50 Plus Softgel] Cholecalciferol (Vitamin D3) 2,000 unit PO DAILY 01/03/15 11/30/19 10/17/15 History [Vitamin D3] Fenofibrate [Lofibra] 80 mg PO QDAY 01/03/15 12/13/19 12/12/19 09:00 History Ferrous Gluconate [Ferate] 240 mg PO DAILY 01/03/15 12/13/19 12/12/19 09:00 History Fish Oil/Borage/Flax/Om3,6,9 1 1,200 mg PO BID 01/03/15 11/30/19 10/17/15 History [[place] 3-6-9 1,200 mg Softgel] Fluticasone [Flonase] 1 spray NS BID 01/03/15 12/13/19 12/12/19 17:00 History Gabapentin 300 mg PO BID 01/03/15 12/13/19 12/12/19 19:00 History Glucosam/Chondr/Collagn/Hyalur 1 each PO TID 01/03/15 12/13/19 12/12/19 17:00 History [Glucosamine & Chondroitin Cap] HYDROcodone/APAP 5-325 [[place] 1 each PO Q6HR PRN 01/03/15 11/30/19 10/15/15 History 5-325 mg TAB] Levothyroxine [Synthroid] 50 mcg PO QAM 01/03/15 11/30/19 10/18/15 06:30 History 50 MCG Mv-Min/Folic/Vit K/Lycop/Coq10 1 each PO DAILY 01/03/15 11/30/19 10/17/15 History [Daily Multivitamin Capsule] Omeprazole [PriLOSEC] 20 mg PO DAILY 01/03/15 11/30/19 10/17/15 History 40 MG Pravastatin [Pravachol] 40 mg PO QHS 01/03/15 12/13/19 12/12/19 20:00 History Temazepam [Restoril] 30 mg PO QHS PRN 01/03/15 12/13/19 12/12/19 20:00 History Tizanidine HCl [tiZANidine] 4 mg PO HS 01/03/15 12/13/19 12/12/19 20:00 History Ubidecarenone [Coq10] 100 mg PO DAILY 01/03/15 12/13/19 12/12/19 09:00 History Azelastine/Fluticasone [Dymista 1 spray INTRANASAL BID 08/12/19 11/30/19 Unknown History Nasal [place]] Apixaban [Eliquis] 5 mg PO BID 11/30/19 12/13/19 12/10/19 09:00 History Calcium Carbonate [Calcium Antacid 200 mg PO QAM 11/30/19 12/13/19 12/12/19 09:00 History 200MG CHEW] Cetirizine HCl [Zyrtec 10mg tab] 10 mg PO DAILY 11/30/19 12/13/19 12/13/19 07:00 History Fluticasone Propion/Salmeterol 1 each IH BID 11/30/19 12/13/19 12/13/19 07:00 History [[place] 500-50 Inhub] Fluticasone/Salmeterol [Advair 1 puff IH BID 11/30/19 12/13/19 12/13/19 07:00 History Diskus 250-50 mcg] Melatonin [Melatonin 5MG CAP] 5 mg PO QHS 11/30/19 11/30/19 Unknown History Mirabegron [Myrbetriq] 50 mg PO QDAY 11/30/19 11/30/19 Unknown History Olopatadine HCl [Patanol] 1 drop OP DAILY 11/30/19 12/13/19 12/12/19 09:00 History Active Medications Cefazolin Sodium (Ancef/Sterile Water 2 Gm/20 Ml) 2 gm IV PREOP NR Stop: 12/13/19 23:00 Fentanyl (Sublimaze) 50 mcg IV Q5MIN PRN PRN Reason: Pain , Severe (7-10) Stop: 12/13/19 23:00 Fentanyl (Sublimaze) 50 mcg IV Q15M PRN PRN Reason: Pain , Severe (7-10) Stop: 12/13/19 13:00 Lactated Ringer's (Lactated Ringers) 1,000 mls @ 42 mls/hr IV DIRECT ALEX Last Admin: 12/13/19 11:10 Dose: 42 mls/hr Documented by: - Physical exam General appearance: no acute distress, well-nourished Integumentary: no rash, no growths Lungs: Clear to auscultation, Normal air movement Heart: Regular rate, No murmurs Gastrointestinal: normal Rectal Exam: normal rectal tone Extremities: no ischemia, No edema Neurological: Normal gait - Brief post op/procedure progress note Date of procedure: 12/13/19 Pre-op diagnosis: bladder tumor Post-op diagnosis: same Procedure: cysto, TURBT Anesthesia: GETA Surgeon: LACIE BECKHAM Pathology: list (bladder tumor) Specimen disposition: to lab Condition: stable - Hospital course Hospital course: macrobid & ultram on chart - Disposition Condition at discharge: Stable Disposition: DC-01 TO HOME OR SELFCARE Short Stay Discharge Plan Follow up with: BRUNO CORONA MD [Primary Care Provider] - 7 Days
[2019-12-13] MEDS ORDERED: WATER FOR IRRIG STERILE 2000 ML IR ONE (12:21)
--- NOTE | 2019-12-13 12:47 | Operative Report ---
PREOPERATIVE DIAGNOSIS: Bladder tumor (bladder neck 12 o'clock position). POSTOPERATIVE DIAGNOSIS: Bladder tumor (bladder neck 12 o'clock position). PROCEDURE: Cystoscopy, bilateral retrograde pyelograms, transurethral resection of bladder tumor. SURGEON: Samuel Esteban MD ANESTHESIA: General. ESTIMATED BLOOD LOSS: Minimal. FLUIDS: Crystalloid. COMPLICATIONS: No complications. INDICATIONS: This patient is an 84-year-old gentleman followed in our office for several years with recurrent bladder tumors. Recent surveillance cystoscopy revealed small tumors. He presents now for surgical intervention. DESCRIPTION OF PROCEDURE: The patient was taken to the operative suite, placed in a supine position. After adequate general anesthesia, placed in a dorsal lithotomy position, prepped and draped in a sterile fashion. Pancystourethroscopy was performed with 22-Tanzanian Storz cystoscope, no acute urethral problems, no acute urethral condition, prostate nonobstructing, both ureteral orifices in normal position, mild trabeculation, flat bladder tumor at the 10 o'clock to 2 o'clock position at the bladder neck. Bilateral retrograde pyelograms were obtained with an 8-Tanzanian Mcdowell catheter and 8 mL of contrast. No filling defects or obstruction. Next, using a 24-Tanzanian resectoscope cutting and coag 160 and 60, transurethral resection of the anterior bladder tumor was performed. Adequate hemostasis achieved. Chips were evacuated out. Bladder was drained. Rectal exam was benign. He was extubated and taken to the recovery room. He will go home on Macrobid and Ultram. He also has a pain stimulator that was placed by Dr. Wilmer Winslow ____ in the past. JOB# [id number] [facility]/NT[facility]
[2019-12-13 13:24] VITALS: BP 124/70
--- NOTE | 2019-12-13 14:10 | Post Anesthesia Evaluation ---
- Post Anesthesia Evaluation Patient Participated: Yes Airway Patent: Yes Stable Respiratory Function: Yes Nausea/Vomiting: No Temp > 96.8F: Yes Pain Manageable: Yes Adequeate Hydration: Yes Anesthesia Complications: No
--- NOTE | 2019-12-13 15:16 | Fluoroscopy Report ---
FLUOROSCOPY RETROGRADE UROGRAPHY HISTORY: Gross hematuria, bladder tumor FINDINGS: Fluoroscopy was provided by radiology during retrograde urography by the urologist. There i s normal filling of both renal collecting systems. No filling defect or abnormal dilatation is identi fied. IMPRESSION: Unremarkable lateral retrograde pyelograms Fluoroscopy time: 11 seconds Fluoroscopic images: 8 Signer Name: Lauri Webb Jr, MD Signed: 12/13/2019 3:12 PM Workstation Name: [id number]
== END 2019-12-13 07:31 | disposition home or self-care (01) ==
LOC: OR 07:30
PROVIDERS: ATTEND Urology
DX: C67.5 Malignant neoplasm of bladder neck (principal); I48.91 Unspecified atrial fibrillation; Z11.59 Encounter for screening for other viral diseases; E78.00 Pure hypercholesterolemia, unspecified; J44.9 Chronic obstructive pulmonary disease, unspecified; G47.30 Sleep apnea, unspecified; K21.9 Gastro-esophageal reflux disease without esophagitis; E03.9 Hypothyroidism, unspecified; I73.9 Peripheral vascular disease, unspecified; I12.9 Hypertensive chronic kidney disease with stage 1 through stage 4 chronic kidney disease, or unspecified chronic kidney disease; N18.9 Chronic kidney disease, unspecified; M19.90 Unspecified osteoarthritis, unspecified site; Z98.890 Other specified postprocedural states; Z79.899 Other long term (current) drug therapy; Z87.891 Personal history of nicotine dependence; Z86.718 Personal history of other venous thrombosis and embolism; Z96.653 Presence of artificial knee joint, bilateral; Z85.038 Personal history of other malignant neoplasm of large intestine; Z86.73 Personal history of transient ischemic attack (TIA), and cerebral infarction without residual deficits
CPT/HCPCS: 36415; 52500; 74420; 80053; 85027; 85610; 85730; 88305; A4217; C1758; J1170; J2704; J7120; Q9967; U0003